=== PATIENT | female | born 1995 | race Caucasian/White ===

== ENCOUNTER 2020-10-11 09:42 | Emergency (ER) | payer OTHER, BC ==
[2020-10-11 11:33] LABS: HEMOGLOBIN 14.7 gm/dl (12.3-15.3); RED BLOOD COUNT 4.97 M/UL (4.00-5.10); WHITE BLOOD COUNT 10.4 K/UL (4.5-11.0)
[2020-10-11 11:54] LABS: BUN/CREATININE RATIO 18 (0-10)
== END 2020-10-11 14:16 | disposition home or self-care (01) ==
LOC: ER1 09:42
PROVIDERS: Physician Assistant
DX: S16.1XXA Strain of muscle, fascia and tendon at neck level, initial encounter (principal); M54.6 Pain in thoracic spine; R10.32 Left lower quadrant pain; R10.12 Left upper quadrant pain; R07.89 Other chest pain; V43.51XA Car driver injured in collision with sport utility vehicle in traffic accident, initial encounter; Y92.410 Unspecified street and highway as the place of occurrence of the external cause
CPT/HCPCS: 71046; 71260; 72125; 72128; 80053; 81001; 83690; 84703; 85025; 96374; 99284; J1885; Q9967

== ENCOUNTER 2021-08-27 13:03 | Emergency (ER) | payer OTHER ==
[2021-08-27 13:46] LABS: HEMOGLOBIN 14.5 gm/dl (12.3-15.3); RED BLOOD COUNT 4.66 M/UL (4.00-5.10)
[2021-08-27 14:10] LABS: BUN/CREATININE RATIO 14 (0-10)
[2021-08-27] MEDS ORDERED: ZOFRAN ODT 4 MG4 MG SL (15:46)
== END 2021-08-27 15:50 | disposition home or self-care (01) ==
LOC: ER1 13:03
PROVIDERS: Emergency Medicine
DX: O21.9 Vomiting of pregnancy, unspecified (principal); O99.891 Other specified diseases and conditions complicating pregnancy; R10.9 Unspecified abdominal pain; R19.7 Diarrhea, unspecified; Z3A.14 14 weeks gestation of pregnancy; Z20.822 Contact with and (suspected) exposure to COVID-19
CPT/HCPCS: 80053; 81001; 83605; 83690; 84439; 84443; 85025; 93005; 96374; 96375; 99284; J2405; J2765; U0002

== ENCOUNTER 2022-02-20 05:22 | Inpatient (IN) | payer OTHER ==
[~2022-02-20] VITALS: Ht 165.1 cm; Wt 94.8 kg
[~2022-02-20 05:22] MED LIST: ZOFRAN ODT 4 MG4 MG SL
[2022-02-20] MEDS ORDERED: PRENATABS RX T1 EACH PO (06:10)
[2022-02-20 06:48] LABS: HEMOGLOBIN 12.1 gm/dl (12.3-15.3); RED BLOOD COUNT 4.26 M/UL (4.00-5.10); WHITE BLOOD COUNT 14.9 K/UL (4.5-11.0)
[2022-02-20] MEDS ORDERED: HYDROCODON-ACE1 EAC4 PO (06:55)
[2022-02-20] MEDS ORDERED: IBUPROFEN600 MG PO (06:55)
[2022-02-20] MEDS ORDERED: DOCUSATE SODIU100 MG PO (06:55)
[2022-02-21 03:06] LABS: HEMOGLOBIN 9.7 gm/dl (12.3-15.3)
== END 2022-02-22 14:32 | disposition home or self-care (01) | DRG 788 ==
LOC: OB 05:22
PROVIDERS: Obstetrics & Gynecology; ADMIT Obstetrics & Gynecology
PROC: 3E0234Z Introduction of Serum, Toxoid and Vaccine into Muscle, Percutaneous Approach (ICD-10-PCS; 2022-02-20)
PROC: 10D00Z1 Extraction of Products of Conception, Low, Open Approach (ICD-10-PCS; principal; 2022-02-20 06:52)
DX: O99.892 Other specified diseases and conditions complicating childbirth (principal); O36.63X0 Maternal care for excessive fetal growth, third trimester, not applicable or unspecified; O99.344 Other mental disorders complicating childbirth; F41.9 Anxiety disorder, unspecified; Z20.822 Contact with and (suspected) exposure to COVID-19; F32.A Depression, unspecified; G43.909 Migraine, unspecified, not intractable, without status migrainosus; Z83.3 Family history of diabetes mellitus; Z82.49 Family history of ischemic heart disease and other diseases of the circulatory system; Z81.8 Family history of other mental and behavioral disorders; Z83.6 Family history of other diseases of the respiratory system; Z79.899 Other long term (current) drug therapy; Z82.3 Family history of stroke; Z37.0 Single live birth; Z3A.39 39 weeks gestation of pregnancy; Z23 Encounter for immunization
CPT/HCPCS: 36415; 81001; 82800; 85014; 85018; 85025; 90715; C9113; J1580; J1885; J2274; J2370; J2405; J2590; J3010; J7120; U0002